=== PATIENT | female | born 1965 | race Native Hawaiian/Other Pacific Islander ===

== ENCOUNTER 2018-04-03 09:57 | Emergency (ER) | payer SELFPAY ==
[2018-04-03 09:59] VITALS: BMI 25.4
[2018-04-03 10:00] VITALS: TEMP 98.6; O2SAT 98
[2018-04-03] MEDS ORDERED: Tdap Vaccine 0.5 ml Vial (10-64 yrs) IM ONE ×2 (10:54→11:46)
--- NOTE | 2018-04-03 10:59 | ED PDOC ---
HPI: General Adult Time Seen by Provider: 04/03/18 10:33 Chief Complaint (Provider): facial laceration History Per: Patient, Family (son-in-law), Scenario Writer (Video metals analyst [id number], Yuly (mandarin)) Additional Complaint(s): 52-year-old female presents with laceration to left side of face status post trip and fall. Patient missed a step outside supermarket causing her to fall. Patient denies dizziness or syncope prior to fall. Patient is not sure of her last tetanus shot. She speaks Mandarin and communication was facilitated via video vehicle safety inspector. Patient's son-in-law also arrived to ED shortly after patient arrived. [place] and is currently visiting family. Patient also has minor abrasion to left knee but is able to fully weight-bear. No other injuries sustained. PMD: none Past Medical History Reviewed: Historical Data, Nursing Documentation, Vital Signs Vital Signs: Last Vital Signs Temp 98.6 F 04/03/18 09:59 Pulse 81 04/03/18 09:59 Resp 20 04/03/18 09:59 BP 160/74 H 04/03/18 09:59 Pulse Ox 98 04/03/18 11:02 - Medical History PMH: Diabetes, HTN - Surgical History Other surgeries: removal of cyst from scalp - Family History Family History: States: No Known Family Hx - Living Arrangements Living Arrangements: With Family - Social History Current smoker - smoking cessation education provided: No Alcohol: None Drugs: Denies - Immunization History Hx Tetanus Toxoid Vaccination: No (not sure of last booster) - Home Medications Home Medications: Ambulatory Orders Medication Instructions Recorded Clindamycin [Cleocin] 300 mg PO TID #21 cap 04/03/18 - Allergies Allergies/Adverse Reactions: Allergies Allergy/AdvReac Type Severity Reaction Status Date / Time No Known Allergies Allergy Verified 04/03/18 10:54 Review of Systems ROS Statement: Except As Marked, All Systems Reviewed And Found Negative Musculoskeletal: Positive for: Other (abrasion to left knee) Skin: Positive for: Other (facial laceration) Neurological: Positive for: Other (no LOC) Physical Exam - Reviewed Nursing Documentation Reviewed: Yes Vital Signs Reviewed: Yes - Physical Exam Appears: Positive for: Well, Non-toxic, No Acute Distress Skin: Negative for: Rash Eye Exam: Positive for: Normal appearance ENT: Positive for: Other (1 cm superficial flap laceration noted to the left maxillary region, minimal active bleeding, no foreign body, minimal tenderness to affected area, superficial abrasion to left forehead, minimal swelling with no ecchymosis, nontender orbits bilaterally) Neck: Positive for: Normal. Negative for: Pain On Movement Of Neck Cardiovascular/Chest: Positive for: Regular Rate, Rhythm Respiratory: Positive for: Normal Breath Sounds Extremity: Positive for: Normal ROM, Other (Superficial abrasion to left patellar region with full range of motion of left knee) Neurologic/Psych: Positive for: Alert, Oriented, Gait (steady) - ECG O2 Sat by Pulse Oximetry: 98 Pulse Ox Interpretation: Normal Medical Decision Making Medical Decision Makin52 year old with facial laceration and left knee abrasion Plan: Tetanus booster Pain meds declined Patient verbally consented for laceration repair by racebook writer. Patient made aware of scar potential. Procedure Note: Under sterile conditions the laceration was anesthetized with 4 mL of 1% lidocaine without epinephrine. Good anesthesia was achieved. Affected area was cleansed with normal saline and Betadine, small flap was realigned and wound margins were revised. 4 simple interrupted 5-0 chromic gut absorbable sutures were used to repair wound. Good wound approximation was achieved, good bleeding control was achieved, procedure was tolerated well by patient with no acute complications. Patient given detailed wound care instructions. Advised [id number] NSAIDs for pain and prescription for clindamycin provided. Advised wound check in 2-3 days. Patient and family member at bedside made aware that sutures will dissolve on their own. Disposition - Clinical Impression Clinical Impression: Facial laceration, Knee abrasion - Patient ED Disposition Is Patient to be Admitted: No Counseled Patient/Family Regarding: Diagnosis, Need For Followup, Rx Given - Disposition Referrals: [facility] [Outside] Disposition: Routine/Home Disposition Time: 11:37 Condition: STABLE Additional Instructions: Keep wound clean and dry. Wash daily with soap and water and apply Neosporin one time daily. Take antibiotics as directed. Take [id number] Tylenol or ibuprofen for pain as needed. Follow-up with primary doctor in 2-3 days. Prescriptions: Clindamycin [Cleocin] 300 mg PO TID #21 cap Instructions: Laceration Repair With Stitches (DC), Skin Abrasions
[2018-04-03] MEDS ORDERED: Lidocaine 1% w Epi 1:100,000 Inj ONE (11:19)
[2018-04-03 12:03] VITALS: BP 150/72; PULSE 78; RESP 18
== END 2018-04-03 11:59 | disposition home or self-care (01) ==
LOC: H.ER 09:57
DX: S01.81XA Laceration without foreign body of other part of head, initial encounter (principal); S80.212A Abrasion, left knee, initial encounter; W01.0XXA Fall on same level from slipping, tripping and stumbling without subsequent striking against object, initial encounter; Y92.89 Other specified places as the place of occurrence of the external cause; E11.9 Type 2 diabetes mellitus without complications; I10 Essential (primary) hypertension